=== PATIENT | male | born 1935 | race Caucasian/White ===

== ENCOUNTER → 2017-01-27 | Outpatient (CLI) | payer MEDICARE, BC ==
[~2017-01-27] MED LIST: IOHEXOL 300 MG/ML 100ML VIAL. IV ONE
--- NOTE | 2017-01-27 11:07 | KCIC ---
PROCEDURE CT head with and without contrast. HISTORY Headache. Prostate and bone cancer. TECHNIQUE Noncontrast CT head was obtained. Post-contrast imaging was performed, 75 milliliters of intravenous Omnipaque 300 administered. One or more of the following individualized dose reduction techniques were utilized for this exam: 1. Automated exposure control. 2. Adjustment of the mA and/or kV according to patient's size. 3. Use of iterative reconstruction technique. COMPARISON None. FINDINGS The ventricles and sulci are within normal limits for age. 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 There is no acute intracranial hemorrhage or extra-axial fluid collection. There is no mass effect or midline shift. Matthews-white differentiation is preserved. There are vascular calcifications. There is no depressed skull fracture. There is a small retention cyst in the right maxillary sinus. The paranasal sinuses and mastoid air cells otherwise are clear. Orbital contents are unremarkable. There is no pathologic enhancement. Vertebrobasilar system is tortuous. Left vertebral artery is dominant. IMPRESSION - No acute intracranial findings. - Brain parenchymal volume loss. Electronically signed by: Norris Gutierrez MD (Jan 27, 2017 11:06:38)
== END | disposition home or self-care (01) ==
LOC: KCIC CT 09:58
PROVIDERS: ATTEND Urology
DX: C61 Malignant neoplasm of prostate (principal); C41.9 Malignant neoplasm of bone and articular cartilage, unspecified
CPT/HCPCS: 70470; Q9967